=== PATIENT | female | born 1965 | race Caucasian/White ===

== ENCOUNTER → 2019-03-11 | Emergency (ER) | payer OTHER ==
[~2019-03-11] VITALS: Ht 157.5 cm; Wt 66.7 kg
[~2019-03-11] MED LIST: GLIMEPIRIDE1 MG; KETO10TA2 PO; LANTUS SOL100 UNIT/1; LEVEMIR100 U/M1; LEVOXYL150 MCG; METFORMIN HCL500 MG; NOVOLIN N100 UNITS/; NOVOLOG100 U/ML; VASOTEC5 MG; XIGDUO XR PO; ZOFRAN8 MG SL
== END | disposition home or self-care (01) ==
LOC: ER 18:16
DX: R11.2 Nausea with vomiting, unspecified (principal)

== ENCOUNTER 2020-08-16 06:05 | Day surgery (SDC) | payer OTHER ==
[~2020-08-16 06:05] MED LIST changes: +BACLOFEN10 MG PO; +ENALAPRIL MALE2.5 MG PO; +GABAPE PO; +JANUVIA100 MG PO; +LANTUS; +LEVO-T150 MCG PO; +LOVASTA PO; +MULTIPLE VITAM1 EACH PO; +PROTONIX40 M1 PO
== END 2020-08-16 11:40 | disposition home or self-care (01) ==
LOC: CIR.AMB 06:05
PROVIDERS: ATTEND Surgery Surgery of the Hand
DX: M65.842 Other synovitis and tenosynovitis, left hand (principal); Z20.822 Contact with and (suspected) exposure to COVID-19

== ENCOUNTER 2020-10-18 06:11 | Day surgery (SDC) | payer OTHER ==
[~2020-10-18 06:11] MED LIST changes: +GABAPENT PO
== END 2020-10-18 09:40 | disposition home or self-care (01) ==
LOC: CIR.AMB 06:11
PROVIDERS: ATTEND Surgery Surgery of the Hand
DX: M65.841 Other synovitis and tenosynovitis, right hand (principal); M67.843 Other specified disorders of tendon, right hand; Z20.822 Contact with and (suspected) exposure to COVID-19

== ENCOUNTER 2025-03-20 10:50 | Emergency (ER) | payer OTHER ==
[~2025-03-20] VITALS: Ht 157.5 cm; Wt 85.7 kg
[2025-03-20] MEDS ORDERED: LEVO-T137 MCG PO (12:12)
[2025-03-20] MEDS ORDERED: PROTONIX40 MG PO (12:13)
[2025-03-20] MEDS ORDERED: VASOTEC2.5 MG PO (12:13)
[2025-03-20] MEDS ORDERED: ALTOPREV40 MG PO (12:14)
[2025-03-20] MEDS ORDERED: LANTUS SOL100 UNIT/1 SQ (12:14)
[2025-03-20] MEDS ORDERED: JANUVIA100 MG PO (12:14)
[2025-03-20] MEDS ORDERED: HORIZANT600 MG (12:15)
[2025-03-20] MEDS ORDERED: METHYLPREDNISOLONE SOD SUCC 125 MG VIAL IV ONE (14:15)
[2025-03-20] MEDS ORDERED: 0.9 % SODIUM CHLORIDE 1,000 ML IV ONE (14:15)
[2025-03-20] MEDS ORDERED: ACETAMINOPHEN 500 MG GEL..CAP PO ONE (14:15)
[2025-03-20] MEDS ORDERED: SODIUM CHLORIDE FOR INHALATION 1 VIAL.NEB IH ONE (14:15)
[2025-03-20 15:46] LABS: BASO % 0.2 % (0.1-1.2); EOS # 0.01 (0.04-0.54); EOS % 0.2 % (0.7-7.0); LYMPH # 1.31 (1.18-3.74); LYMPH % 30.3 % (19.3-53.1); MEAN PLATELET VOLUME 11.60 fl (9.4-12.4); MONO # 0.44 (0.24-0.82); MONO % 10.2 % (4.7-12.5); NEUT # 2.55 (1.56-6.13); NEUT % 58.9 % (34.0-71.1); RED CELL DISTRIBUTION WIDTH 12.6 % (11.6-14.4)
[2025-03-20 16:14] LABS: INR 1.02
[2025-03-20 16:20] LABS: ALT/SGPT 51.0 U/L (12-78); AST/SGOT 46.0 U/L (15-37); BILIRUBIN TOTAL 0.57 mg/dL (0.3-1.2); BUN CREA RATIO 25.0 (7.0-25.0); CREATININE SERUM 0.71 mg/dL (0.55-1.02); GFR 84.55; GLOBULINA 4.4 G/DL (2.4-3.5); GLUCOSE FASTING 91.0 mg/dL (65-100); OSMOLALITY SERUM 273.0 MOSM/KG (275-295)
[2025-03-20] MEDS ORDERED: LIDOCAINE HCL VISCOUS 20MG/ML BLIST 15ML MM ONE (17:00)
[2025-03-20 17:36] LABS: URINE APPEARANCE Clear; URINE BILIRRUBIN Negative (NEGATIVE); URINE BLOOD Negative; URINE COLOR Yellow; URINE LEUKOCYTE Negative; URINE NITRATE Negative; URINE PROTEIN Negative (NEGATIVE); URINE UROBILINOGEN 1.0 E.U./dl
[2025-03-20 17:42] LABS: URINE BACTERIA 50.3 uL (0.0-1933); URINE EPITHELIAL CELLS 10.9 uL (0.0-38.8); URINE RBC 2.4 uL (0.0-20.8); URINE WBC 9.0 uL (0.0-23.2)
[2025-03-20 17:57] LABS: URINE CAST 0.14 uL (0.0-1.40); URINE GLUCOSE >=1000 MG/DL (NEGATIVE); URINE KETONE 80 (NEGATIVE)
[2025-03-20 18:15] LABS: COVID-19 AG NEGATIVE (NEGATIVE)
[2025-03-20] MEDS ORDERED: ZITHROMAX500 MG PO (18:22)
[2025-03-20] MEDS ORDERED: BENZONATATE100 MG PO (18:22)
[2025-03-20] MEDS ORDERED: OSEL75CA PO (18:22)
[2025-03-20] MEDS ORDERED: MUCINEX DM ER1 EAC1 PO (18:22)
== END 2025-03-20 19:06 | disposition home or self-care (01) ==
LOC: ER 10:50
DX: J00 Acute nasopharyngitis [common cold] (principal); I10 Essential (primary) hypertension; R53.1 Weakness; R05.8 Other specified cough; R50.9 Fever, unspecified; E03.8 Other specified hypothyroidism; E11.9 Type 2 diabetes mellitus without complications; Z79.4 Long term (current) use of insulin; Z20.822 Contact with and (suspected) exposure to COVID-19